=== PATIENT | female | born 1990 | race Caucasian/White ===

== ENCOUNTER 2017-05-05 15:32 | Emergency (ER) | payer OTHER ==
[2017-05-05 17:51] LABS: URINE BLOOD (Dip) POC Trace-lysed (NEGATIVE); URINE GLUCOSE (Dip) POC Negative (NEGATIVE); URINE KETONES (Dip) POC Negative (NEGATIVE); URINE LEUKOCYTE EST (Dip) POC 1+ (NEGATIVE); URINE NITRITE (Dip) POC Negative (NEGATIVE); URINE TOTAL PROTEIN POC Trace (NEGATIVE)
== END 2017-05-05 18:42 | disposition home or self-care (01) ==
LOC: E/R 15:32 → FTE 18:42
DX: H66.91 Otitis media, unspecified, right ear (principal); N30.00 Acute cystitis without hematuria; Z85.038 Personal history of other malignant neoplasm of large intestine
CPT/HCPCS: 81003; 99283